=== PATIENT | male | born 1970 | race Hispanic/Latino ===

== ENCOUNTER 2021-12-08 16:43 | Inpatient (IN) | payer MEDICARE ==
[~2021-12-08] VITALS: Ht 170.2 cm; Wt 99.9 kg
[2021-12-08] VITALS (12 sets, daily range): BP systolic 125–160; BP diastolic 80–108
[2021-12-08 17:22] LABS: BASOPHILS # (AUTO) 0.1 (0.0-0.1); EOSINOPHILS # (AUTO) 0.5 (0.0-0.4); EOSINOPHILS % 4.2 % (0.0-6.0); HEMATOCRIT 45.8 % (38.2-49.6); HEMOGLOBIN 14.9 g/dL (14.0-18.0); LYMPHOCYTES # (AUTO) 1.2 (1.0-3.2); LYMPHOCYTES % 9.7 % (18.0-39.1); MEAN CORPUSCULAR HEMOGLOBIN 31.2 pg (28-32); MEAN CORPUSCULAR HGB CONC 32.5 g/dL (31-35); MEAN CORPUSCULAR VOLUME 95.8 fL (81-99); MONOCYTES # (AUTO) 0.3 (0.2-0.8); MONOCYTES % 2.8 % (4.4-11.3); NEUTROPHILS # (AUTO) 9.9 (2.1-6.9); PLATELET COUNT 211 x10e3/uL (140-360); RED BLOOD COUNT 4.78 x10e6/uL (4.3-5.7)
[2021-12-08 17:41] LABS: ABG PCO2 32 mmHg (35-45); ABG PH 7.48 (7.35-7.45)
[2021-12-08 17:42] LABS: ABG HCO3 24 mmol/L (22-26); ABG PO2 60 mmHg (80-105); ABG TCO2 25
[2021-12-08 17:44] LABS: ALBUMIN 4.3 g/dL (3.5-5.0); ALBUMIN/GLOBULIN RATIO 0.9 (0.8-2.0); ANION GAP 17.9 mmol/L (8-16); CALCIUM 9.7 mg/dL (8.4-10.2); CREATININE, SERUM 1.11 mg/dL (0.72-1.25); POTASSIUM 3.9 mmol/L (3.5-5.1)
[2021-12-08 17:51] LABS: CREATINE KINASE MB 3.1 ng/mL (0-5.0)
[2021-12-08] MEDS ORDERED: NITROGLYCERIN 2% OINT 1 GM PKT ONE (18:08)
[2021-12-08] MEDS ORDERED: IOPAMIDOL 370 MG/ML 100 ML INFUS..BTL INJ ONE (18:15)
[2021-12-08] MEDS ORDERED: FUROSEMIDE INJ 10 MG/ML 4 ML VIAL IV ONE (18:15)
[2021-12-08] MEDS ORDERED: NITROGLYCERIN 2% OINT 1 GM PKT TOP ONE (18:15)
[2021-12-08] MEDS ORDERED: Doxycycline IV 100 MG in SODIUM CHLORIDE 0.9% 100 ML IV STA (19:17)
[2021-12-08] MEDS: NITROGLYCERIN/D5W 200 MCG/ML 250 ML IV SCH (19:41)
[2021-12-09] VITALS (32 sets, daily range): BP systolic 3–159; BP diastolic 62–114
[2021-12-09 05:57] LABS: BASOPHILS # (AUTO) 0.1 (0.0-0.1); BASOPHILS % 0.7 % (0.0-1.0); EOSINOPHILS # (AUTO) 0.2 (0.0-0.4); EOSINOPHILS % 1.3 % (0.0-6.0); HEMATOCRIT 37.4 % (38.2-49.6); HEMOGLOBIN 12.7 g/dL (14.0-18.0); LYMPHOCYTES # (AUTO) 0.9 (1.0-3.2); LYMPHOCYTES % 7.1 % (18.0-39.1); MEAN CORPUSCULAR HEMOGLOBIN 31.4 pg (28-32); MEAN CORPUSCULAR VOLUME 92.3 fL (81-99); MONOCYTES # (AUTO) 0.7 (0.2-0.8); MONOCYTES % 5.4 % (4.4-11.3); NEUTROPHILS # (AUTO) 11.3 (2.1-6.9); PLATELET COUNT 169 x10e3/uL (140-360); RED BLOOD COUNT 4.05 x10e6/uL (4.3-5.7); RED CELL DISTRIBUTION WIDTH 12.4 % (11.7-14.4)
[2021-12-09 06:16] LABS: ANION GAP 15.1 mmol/L (8-16); CALCIUM 8.7 mg/dL (8.4-10.2); CREATININE, SERUM 1.01 mg/dL (0.72-1.25); POTASSIUM 4.1 mmol/L (3.5-5.1)
[2021-12-09 12:31] LABS: CHOL/HDL RATIO 4.1 (3.9-4.7)
[2021-12-09 12:51] LABS: THYROID STIMULATING HORMONE 0.521 uIU/mL (0.350-4.940)
[2021-12-09] MEDS ORDERED: ACETAMINOPHEN 325 MG TAB PO PRN (16:45)
[2021-12-09] MEDS: CARVEDILOL 3.125 MG TAB PO SCH (17:01)
[2021-12-09] MEDS: ENOXAPARIN SOD INJ 40 MG/0.4 ML SYR SC SCH (17:02)
[2021-12-09] MEDS: ONDANSETRON HCL INJ 2MG/ML 2ML 2 MG/ML VIAL IV PRN (19:30)
[2021-12-09] MEDS: NITROGLYCERIN/D5W 200 MCG/ML 250 ML IV SCH (19:30)
[2021-12-09] MEDS ORDERED: FISH OIL DR 1,1 EAC1 PO (19:47)
[2021-12-09] MEDS ORDERED: ADVIL200 M1 PO (19:47)
[2021-12-09] MEDS ORDERED: CLONIDINE HCL 0.1 MG TAB PO PRN (23:45)
[2021-12-09] MEDS ORDERED: FUROSEMIDE INJ 10 MG/ML 4 ML VIAL IV ONE (23:45)
[2021-12-10] VITALS (16 sets, daily range): BP systolic 101–178; BP diastolic 58–123
[2021-12-10] MEDS: ONDANSETRON HCL INJ 2MG/ML 2ML 2 MG/ML VIAL IV PRN (04:16)
[2021-12-10 05:00] LABS: BASOPHILS % 0.3 % (0.0-1.0); EOSINOPHILS # (AUTO) 0.1 (0.0-0.4); EOSINOPHILS % 0.6 % (0.0-6.0); HEMATOCRIT 40.2 % (38.2-49.6); HEMOGLOBIN 13.2 g/dL (14.0-18.0); LYMPHOCYTES # (AUTO) 0.7 (1.0-3.2); LYMPHOCYTES % 5.4 % (18.0-39.1); MEAN CORPUSCULAR HEMOGLOBIN 31.4 pg (28-32); MEAN CORPUSCULAR HGB CONC 32.8 g/dL (31-35); MONOCYTES # (AUTO) 0.5 (0.2-0.8); NEUTROPHILS # (AUTO) 10.7 (2.1-6.9); NEUTROPHILS % 89.4 % (38.7-80.0); PLATELET COUNT 166 x10e3/uL (140-360); RED BLOOD COUNT 4.21 x10e6/uL (4.3-5.7); RED CELL DISTRIBUTION WIDTH 11.9 % (11.7-14.4)
[2021-12-10 05:12] LABS: MEAN CORPUSCULAR VOLUME 95.5 fL (81-99)
[2021-12-10 05:23] LABS: ANION GAP 19.5 mmol/L (8-16); CALCIUM 8.7 mg/dL (8.4-10.2); CREATININE, SERUM 0.89 mg/dL (0.72-1.25); POTASSIUM 3.5 mmol/L (3.5-5.1)
[2021-12-10] MEDS: ASPIRIN 81 MG ENTERIC COATED PO SCH (08:24)
[2021-12-10] MEDS: CARVEDILOL 3.125 MG TAB PO SCH (08:24)
[2021-12-10] MEDS ORDERED: HYDROCHLOROTHIAZIDE 25 MG TAB PO SCH (09:00)
[2021-12-10] MEDS ORDERED: LOSARTAN POTASSIUM 25 MG TAB PO SCH (09:00)
[2021-12-10] MEDS: HYDROCHLOROTHIAZIDE 25 MG TAB PO SCH (11:25)
[2021-12-10] MEDS: LOSARTAN POTASSIUM 25 MG TAB PO SCH ×2 (11:26→16:32)
[2021-12-10] MEDS: CARVEDILOL 12.5 MG TAB PO SCH ×2 (11:27→21:00)
[2021-12-10] MEDS: ENOXAPARIN SOD INJ 40 MG/0.4 ML SYR SC SCH (16:32)
[2021-12-10] MEDS: NITROGLYCERIN/D5W 200 MCG/ML 250 ML IV SCH (19:30)
[2021-12-11] VITALS (16 sets, daily range): BP systolic 91–135; BP diastolic 49–93
[2021-12-11] MEDS: ASPIRIN 81 MG ENTERIC COATED PO SCH (08:07)
[2021-12-11] MEDS: HYDROCHLOROTHIAZIDE 25 MG TAB PO SCH (08:07)
[2021-12-11] MEDS: LOSARTAN POTASSIUM 25 MG TAB PO SCH ×2 (08:08→16:34)
[2021-12-11] MEDS: CARVEDILOL 12.5 MG TAB PO SCH ×2 (08:10→21:25)
[2021-12-11] MEDS: ENOXAPARIN SOD INJ 40 MG/0.4 ML SYR SC SCH (16:34)
[2021-12-11] MEDS: NITROGLYCERIN/D5W 200 MCG/ML 250 ML IV SCH (19:30)
[2021-12-12] VITALS (23 sets, daily range): BP systolic 106–146; BP diastolic 67–111
[2021-12-12] MEDS: LOSARTAN POTASSIUM 25 MG TAB PO SCH ×2 (08:00→16:43)
[2021-12-12] MEDS: HYDROCHLOROTHIAZIDE 25 MG TAB PO SCH (08:00)
[2021-12-12] MEDS: ASPIRIN 81 MG ENTERIC COATED PO SCH (08:00)
[2021-12-12] MEDS: CARVEDILOL 12.5 MG TAB PO SCH ×2 (08:01→20:09)
[2021-12-12] MEDS: ENOXAPARIN SOD INJ 40 MG/0.4 ML SYR SC SCH (16:42)
[2021-12-12] MEDS ORDERED: COREG12.5 MG PO (19:14)
[2021-12-12] MEDS ORDERED: LOSARTAN-HCTZ1 EAC1 PO (19:15)
[2021-12-12] MEDS ORDERED: ASPIRIN CHEW81 MG PO (19:16)
[2021-12-12] MEDS: NITROGLYCERIN/D5W 200 MCG/ML 250 ML IV SCH (19:30)
== END 2021-12-12 20:12 | disposition home or self-care (01) | DRG 291 ==
LOC: ER 17:11 → ERHOLD 19:25 → ICU 21:06
PROVIDERS: ADMIT Family Medicine; ATTEND Family Medicine
DX: I11.0 Hypertensive heart disease with heart failure (principal); I50.21 Acute systolic (congestive) heart failure; J96.01 Acute respiratory failure with hypoxia; I16.1 Hypertensive emergency; L97.829 Non-pressure chronic ulcer of other part of left lower leg with unspecified severity; F10.90 Alcohol use, unspecified, uncomplicated; Z80.9 Family history of malignant neoplasm, unspecified; Z84.89 Family history of other specified conditions; I87.2 Venous insufficiency (chronic) (peripheral); I83.028 Varicose veins of left lower extremity with ulcer other part of lower leg; G93.89 Other specified disorders of brain; Z87.820 Personal history of traumatic brain injury
CPT/HCPCS: 0223U; 36415; 36600; 51700; 70450; 71045; 71260; 80048; 80053; 80061; 82550; 82553; 82805; 83605; 83880; 84443; 84484; 85025; 85379; 87040; 93005; 93306; 94799; 99251; 99285; J0696; J1650; J1940; J2405; J7050; Q9967

== ENCOUNTER 2022-07-18 18:09 | Emergency (ER) | payer MEDICARE ==
[~2022-07-18] VITALS: Ht 170.2 cm; Wt 99.8 kg
[~2022-07-18 18:09] MED LIST: ADVIL200 M1 PO; ASPIRIN CHEW81 MG PO; COREG12.5 MG PO; FISH OIL DR 1,1 EAC1 PO; LOSARTAN-HCTZ1 EAC1 PO
[2022-07-18 18:15] VITALS: O2SAT 97
[2022-07-18] MEDS ORDERED: LOSARTAN-HCTZ1 EAC2 PO (18:22)
== END 2022-07-18 18:40 | disposition home or self-care (01) ==
LOC: ER 18:18
DX: I10 Essential (primary) hypertension (principal); Z96.642 Presence of left artificial hip joint
CPT/HCPCS: 99282